=== PATIENT | female | born 1985 | race Two or more races ===

== ENCOUNTER → 2020-08-25 | Emergency (ER) | payer OTHER ==
[~2020-08-25] VITALS: Ht 160 cm; Wt 77.1 kg
[~2020-08-25] MED LIST: LEVOTHYROXINE25 MCG; PRENATAL
== END | disposition left against medical advice (07) ==
LOC: ER 21:58
DX: O26.892 Other specified pregnancy related conditions, second trimester (principal); R10.2 Pelvic and perineal pain; Z3A.16 16 weeks gestation of pregnancy

== ENCOUNTER → 2020-09-30 12:40 | Outpatient (CLI) | payer OTHER | END | disposition home or self-care (01) | LOC: LAB 12:40 | PROVIDERS: ATTEND Obstetrics & Gynecology Maternal & Fetal Medicine | DX: Z34.82 Encounter for supervision of other normal pregnancy, second trimester (principal); E78.2 Mixed hyperlipidemia ==